=== PATIENT | male | born 1950 | race Caucasian/White ===

== ENCOUNTER → 2024-10-31 10:17 | Outpatient (CLI) | payer MEDICARE, SELFPAY | LOC: RESP 10:19 | PROVIDERS: Family Provider Specialist; PCP Specialist; Referring Provider Student in an Organized Health Care Education/Training Program; Visit Provider Student in an Organized Health Care Education/Training Program | DX: R06.02 Shortness of breath (principal); Z87.891 Personal history of nicotine dependence; J98.8 Other specified respiratory disorders; R94.2 Abnormal results of pulmonary function studies | CPT/HCPCS: 94060; 94726; 94729 ==